=== PATIENT | female | born 2005 ===

== ENCOUNTER 2023-09-26 09:48 | Outpatient (AMB) | payer OTHER, SELFPAY ==
--- NOTE | 2023-09-26 09:14 | MHC.PC.OV ---
Vital Signs 09/26/23 10:11 Height 5 ft 3.54 in Weight 228 lb 6 oz BMI 39.8 BP 112/68 Blood Pressure Location Rt brachial Position Sitting Pulse 90 Pulse Source Pulse Oximeter Temp 98.6 F Temp Source Oral Pulse Oximetry (%) 98 Oxygen Delivery Method Room Air Intake Visit Reasons: unpaid intern visit Intake Note: New patient visit. Ion Exchange Operator Required: Yes Ion Exchange Operator Language: Medicine Man Name: Ana Cristina [id number] Information Interpreted: clinical only Is last menstrual period known: Yes Last menstrual period: 09/24/23 Allergies No Known Allergies Allergy (Verified 09/26/23 10:02) Medication List - Last Reconciled 09/26/23 by Jessica Drake PA-C No Known Home Meds Tobacco use date assessed: 09/26/23 Dental Screening Dental Screen Date: 09/26/23 Did you have a dental visit in the last 12 months?: Yes Did you have a dental problem in the last 6 months where you did not have access to dental care?: No Was dental information given to patient?: Yes HPI unpaid intern visit HPI Details Pt is a 18 y/o female who presents today to establish care. She states that she used to follow with a chair trimmer but it was a few years ago. She denies being diagnosed with anything. medical supply technician #[id number] used today She states she made this appointment for a few reasons: -She states she has a very irregular menses. She states it has been like this since she started getting periods at the age of 8. She has never had a ferry terminal agent. She is sexually active. She states she has not had any STD testing. -She has noted malodorous urine on and off for the last month. No dysuria, flank pain, abdominal pain, n/v. No fever or chills. She does report that she does not drink enough water. Her mother had uterine cancer. -She endorses upper back pain that she believes is from her breasts. She states it causes her to lean forward a lot. She wants a breast reduction. -she gets a lot of rashes under her breasts especially in the summertime. She tries to be more physically active but when she sweats a lot the rashes get worse. It is intermittently itchy. PFSH Family History (Updated 09/26/23 @ 10:09 by Meggan Hicks CMA) Maternal Aunt No problems noted. 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 How often do you have a drink containing alcohol?: Monthly or less 2. How many drinks containing alcohol do you have on a typical day when you are drinking?: 1 or 2 3. How often do you have six or more drinks on one occasion?: Never Total Score: 1 Physical exam (Primary Care) Vital Signs: Last Vital Signs Temp 98.6 F 09/26/23 10:11 Pulse 90 09/26/23 10:11 BP 112/68 09/26/23 10:11 Pulse Ox 98 09/26/23 10:11 Oxygen Delivery Method Room Air 09/26/23 10:11 BMI result Body Mass Index 39.8 BMI Assessment/Plan discussion: High BMI High, discussed plan: lifestyle, weight reduction, dietary and physical activity Tobacco/Smoking Status: Tobacco use Status Tobacco use date assessed 09/26/23 09/26/23 10:14 Patient Tobacco Use Status Never used Tobacco 09/26/23 10:14 e-Cigarette/Vaping Use Currently Using 09/26/23 10:14 Const Orientation/consciousness: patient oriented x3 HENMT Ears: hearing grossly normal bilaterally Face and sinus: Yes sinuses nontender Mouth: Normal oral and palatal mucosa present Neck Neck: Yes full ROM Thyroid: Thyroid normal Lymphatic: no lymphadenopathy noted Chest Other: Large, pendulous breasts. There is a slightly erythematous, flat rash noted beneath the breasts and between the breasts. There are scattered satellite lesions. Resp Auscultation: clear to auscultation bilaterally Cardio Rate: regular rate Rhythm: regular rhythm Heart sounds: S1 normal heart sound present and S2 normal heart sound present GI Inspection: Yes normal to inspection Palpation (GI): Soft to palpation and Other GI palpation findings present (nontender, no cva tenderness) Auscultation: normoactive bowel sounds General: Yes CVA tenderness Back/Spine/Pelvis Back: CVA tenderness Thoracic/Lumbar Spine: thoracic and lumbar spine normal to inspection, straight leg raise negative bilaterally and paraspinal muscle tenderness Skin General skin exam: no rashes or lesions noted Neuro General: patient oriented x3, gait normal and no focal motor deficits Assessment and Plan Assessment & Plan (1) Upper back pain: Code(s): M54.9 - Dorsalgia, unspecified Plan: xray ordered. advised to start PT. I have encouraged weight loss (2) Candidiasis of breast: Code(s): B37.89 - Other sites of candidiasis Plan: will treat with clotrimazole cream. Advised to keep the skin clean and dry. We will follow up in 1 month. (3) Irregular menses: Code(s): N92.6 - Irregular menstruation, unspecified Plan: Referral to Gynecology. Labs ordered. Advised to track her menses. (4) Malodorous urine: Code(s): R82.90 - Unspecified abnormal findings in urine Plan: UA and culture ordered. STD panel ordered. We will follow up pending test results. I have encouraged hydration. Orders: Orders Complete Blood Count Auto Diff Today . - Other sites of candidiasis, M54.9 - Dorsalgia, unspecified, N92.6 - Irregular menstruation, unspecified, R82.90 - Unspecified abnormal findings in urine, Z11.3 - Encounter for screening for infections with a predominantly sexual mode of transmission Comprehensive [place]. Panel Fast Today . - Other sites of candidiasis, M54.9 - Dorsalgia, unspecified, N92.6 - Irregular menstruation, unspecified, R82.90 - Unspecified abnormal findings in urine, Z11.3 - Encounter for screening for infections with a predominantly sexual mode of transmission UA CC w/rflx Micro + Cult Today B3.89 - Other sites of candidiasis, M54.9 - Dorsalgia, unspecified, N92.6 - Irregular menstruation, unspecified, R82.90 - Unspecified abnormal findings in urine, Z11.3 - Encounter for screening for infections with a predominantly sexual mode of transmission TSH reflex Free T4 Today B3.89 - Other sites of candidiasis, M54.9 - Dorsalgia, unspecified, N92.6 - Irregular menstruation, unspecified, R82.90 - Unspecified abnormal findings in urine, Z11.3 - Encounter for screening for infections with a predominantly sexual mode of transmission Hepatitis C Antibody Today B37.89 - Other sites of candidiasis, M54.9 - Dorsalgia, unspecified, N92.6 - Irregular menstruation, unspecified, R82.90 - Unspecified abnormal findings in urine, Z11.3 - Encounter for screening for infections with a predominantly sexual mode of transmission Syphilis Screen Today B37.89 - Other sites of candidiasis, M54.9 - Dorsalgia, unspecified, N92.6 - Irregular menstruation, unspecified, R82.90 - Unspecified abnormal findings in urine, Z11.3 - Encounter for screening for infections with a predominantly sexual mode of transmission CT NG by PCR Today B37.89 - Other sites of candidiasis, M54.9 - Dorsalgia, unspecified, N92.6 - Irregular menstruation, unspecified, R82.90 - Unspecified abnormal findings in urine, Z11.3 - Encounter for screening for infections with a predominantly sexual mode of transmission XR thoracic spine 2V Today M54.9 - Dorsalgia, unspecified PT Evaluation and Treatment Today M54.9 - Dorsalgia, unspecified Lipid Panel Today B37.89 - Other sites of candidiasis, M54.9 - Dorsalgia, unspecified, N92.6 - Irregular menstruation, unspecified, R82.90 - Unspecified abnormal findings in urine, Z11.3 - Encounter for screening for infections with a predominantly sexual mode of transmission HIV Ab/Ag Today B37.89 - Other sites of candidiasis, M54.9 - Dorsalgia, unspecified, N92.6 - Irregular menstruation, unspecified, R82.90 - Unspecified abnormal findings in urine, Z11.3 - Encounter for screening for infections with a predominantly sexual mode of transmission Referrals PHOTONIC LABORATORY TECHNICIAN Referral Z01.419 - Encounter for gynecological examination (general) (routine) without abnormal findings Medications: New clotrimazole 1% 1 appl topical BID 4 weeks 45 grams 3RF Coding Level of Care Code New Pt Level 4 (46553) Complex EM visit Add On G2211 Diagnoses Upper back pain M54.9 Candidiasis of breast B37.89 Irregular menses N92.6 Malodorous urine R82.90
[2023-09-26 10:11] VITALS: BP 112/68; PULSE 90; TEMP 37; O2SAT 98; BMI 39.8
== END 2023-09-26 10:47 | disposition home or self-care (01) ==
PROVIDERS: Visit Provider Physician Assistant
DX: M54.9 Dorsalgia, unspecified (principal); B37.89 Other sites of candidiasis; N92.6 Irregular menstruation, unspecified; R82.90 Unspecified abnormal findings in urine
CPT/HCPCS: 99204; G2211

== ENCOUNTER 2023-10-11 09:26 | Outpatient (REF) | payer OTHER, SELFPAY ==
[2023-10-11 11:03] LABS: Appearance Urine Clear; Color Urine Yellow; Glucose Urine UA Negative (Negative); Leukocyte Esterase Urine Small (1+) (Negative); Nitrite Urine Negative (Negative); PH 6.5 (5.0-9.0); Specific Gravity - Urine 1.025 (1.005-1.025); UMIC TRIGGER UACC YES; Urine Blood Negative (Negative); Urine Ketones Negative (Negative); Urine Protein Negative (Neg-Trace)
[2023-10-11 11:10] LABS: Bacteria Urine 1+ (None Seen); Hyaline Casts Urine 0-2 /LPF (0-2); RBC Urine 0-2 /HPF (0-2); UACC Culture Trigger YES
== END 2023-10-11 09:27 | disposition home or self-care (01) ==
LOC: HO.WFDLDS 09:26
PROVIDERS: Visit Provider Physician Assistant
DX: R82.90 Unspecified abnormal findings in urine (principal)
CPT/HCPCS: 81001; 81003; 87086; 87088; 87186

== ENCOUNTER 2023-10-12 11:16 | Outpatient (REF) | payer OTHER, SELFPAY ==
[2023-10-12 12:53] LABS: MANUAL DIFF FLAG NO
[2023-10-12 12:56] LABS: Basophils Percent Auto 0.5 % (0-2); Eosinophils Absolute Auto 0.2 X10*3/uL (0.0-0.4); Eosinophils Percent Auto 2.5 % (0-4); Hematocrit 40.2 % (37.0-47.0); Hemoglobin 13.2 g/dl (12.0-16.0); Imm Gran Abs Auto 0.01 X10*3/uL (0.00-0.03); Imm Gran Pct Auto 0.2 % (0.0-0.4); Lymphocytes Absolute Auto 2.1 X10*3/uL (1.2-4.9); Lymphocytes Percent Auto 32.5 % (20-40); Mean Corpuscular HGB Conc 32.8 g/dl (31.0-35.0); Mean Corpuscular Volume 82.4 fL (80.0-98.0); Mean Platelet Volume 10.3 fL (9.4-12.3); Monocytes Absolute Auto 0.5 X10*3/uL (0.1-1.2); Monocytes Percent Auto 8.2 % (2-11); Neutrophils Absolute Auto 3.6 x10*3/uL (2.0-8.3); Neutrophils Percent Auto 56.1 % (45-73); Platelet Count 315 X10*3/uL (160-400); Red Blood Count 4.88 X10*6/uL (4.20-5.50); Red Cell Distribution Width 12.7 % (11.0-16.0); White Blood Count 6.4 X10*3/uL (4.8-10.8)
[2023-10-12 13:12] LABS: Appearance Urine Cloudy; Color Urine Yellow; Glucose Urine UA Negative (Negative); Leukocyte Esterase Urine Moderate (2+) (Negative); Nitrite Urine Positive (Negative); PH 5.5 (5.0-9.0); UMIC TRIGGER UACC YES; Urine Blood Negative (Negative); Urine Ketones Negative (Negative); Urine Protein Negative (Neg-Trace)
[2023-10-12 13:17] LABS: Bacteria Urine 4+ (None Seen); Hyaline Casts Urine 0-2 /LPF (0-2); RBC Urine 0-2 /HPF (0-2); UACC Culture Trigger YES; WBC Urine >50 /HPF (0-5)
[2023-10-12 13:22] LABS: Alanine Aminotransferase 23 U/L (0-31); Alkaline Phosphatase 80 U/L (39-117); Anion Gap 11 (12-20); Aspartate Amino Transferase 20 U/L (5-31); Bilirubin Total 0.3 mg/dL (0.0-1.0); Blood Urea Nitrogen 10 mg/dL (9-16); Calcium 9.5 mg/dL (8.4-10.2); Carbon Dioxide 25 mmol/L (22-29); Chloride 107 mmol/L (96-108); Cholesterol 167 mg/dL (<200); Estimated Glomerular Filt Rate > 60; Glucose Fasting 92 mg/dL (60-99); HDL Cholesterol 41 mg/dL (>40); LDL Cholesterol Calculated 100 mg/dL (<100); Potassium 4.2 mmol/L (3.3-5.1); Sodium 139 mmol/L (135-145); Total Protein 6.8 g/dL (6.5-8.0); Triglycerides 132 mg/dL (<150)
[2023-10-12 13:37] LABS: TSH reflex Free T4 0.72 uIU/mL (0.32-4.0)
[2023-10-13 03:53] LABS: Syphilis Screen Nonreactive (Nonreactive)
[2023-10-13 04:01] LABS: HIV Num 1 3.29 S/CO (0.00-0.99); ~Hepatitis C Antibody Nonreactive (Nonreactive)
[2023-10-13 05:06] LABS: HIV AB/AG Nonreactive (Nonreactive); HIV Num 2 0.26 S/CO; HIV Num 3 0.28 S/CO
== END 2023-10-12 11:17 | disposition home or self-care (01) ==
LOC: HO.HMGCLDS 11:16
PROVIDERS: Visit Provider Physician Assistant
DX: M54.9 Dorsalgia, unspecified (principal); B37.89 Other sites of candidiasis; N92.6 Irregular menstruation, unspecified; R82.90 Unspecified abnormal findings in urine; Z11.3 Encounter for screening for infections with a predominantly sexual mode of transmission
CPT/HCPCS: 36415; 80053; 80061; 81001; 81003; 84443; 85025; 86780; 86803; 87389

== ENCOUNTER 2023-10-18 12:04 | Outpatient (REF) | payer OTHER, SELFPAY ==
--- NOTE | ~2023-10-18 | XR_ITS ---
EXAMINATION: XR THORACIC SPINE CLINICAL INFORMATION: Back pain. COMPARISON: None available. TECHNIQUE: 3 views of the thoracic spine were obtained. FINDINGS: There is no fracture or bone destruction seen and the vertebral alignment is normal. There is no disc space narrowing. There is no abnormality of the paraspinal soft tissues. XR/XR thoracic spine 2V IMPRESSION: Unremarkable examination. Electronically signed by: Jg Aguirre MD 11/13/2023 09:00 PM EDT
== END 2023-10-18 12:05 | disposition home or self-care (01) ==
LOC: HO.XRAY 12:04
PROVIDERS: PCP Physician Assistant; Visit Provider Physician Assistant
DX: M54.9 Dorsalgia, unspecified (principal)
CPT/HCPCS: 72070

== ENCOUNTER 2023-11-06 15:21 | Outpatient (AMB) | payer OTHER, SELFPAY ==
--- NOTE | 2023-11-06 15:28 | A.OFFPC_ITS ---
Vital Signs 11/06/23 15:42 Height 5 ft 3.54 in Weight 226 lb 6 oz BMI 39.4 BP 98/70 Blood Pressure Location Lt brachial Position Sitting Respiration 16 Pulse 69 Pulse Source Pulse Oximeter Pulse Oximetry (%) 97 Oxygen Delivery Method Room Air Intake Visit Reasons: annual and labs Intake Note: Follow up lab results. Cargo And Ramp Services Manager Required: Yes Cargo And Ramp Services Manager Language: School Cafeteria Head Cook Name: Fidel [id number] Allergies No Known Allergies Allergy (Verified 11/06/23 15:28) Medication List - Last Reconciled 11/06/23 by Jessica Drake PA-C No Known Home Meds Tobacco use date assessed: 09/26/23 Dental Screening Dental Screen Date: 09/26/23 HPI annual and labs HPI Details Patient is a 18-year-old female who presents today for a physical exam. Cargo And Ramp Services Manager: Fidel [id number] Derm: She does complain today a dark in rash round her neck in the skin fold. She has no symptoms related to this. She has tried [id number] creams without any improvement. It does not bother her. She states it cosmetically bothers her. Musculoskeletal: Left knee pain that started about 2 months ago. It is mostly on the lateral aspect. It often feels stiff and like it could give out on her. She denies any swelling, erythema. No trauma. 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 She states her left middle finger is also sometimes stiff but not all of the time. She got her back xray on 10/17 and it is not back yet. Semiconductor Equipment Technician: states she needs to call to book [facility] Family History (Updated 09/26/23 @ 10:09 by Meggan Hicks CMA) Maternal Aunt No problems noted. 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 1. Little interest or pleasure in doing things: not at all 2. Feeling down, depressed, or hopeless: not at all 3. Trouble falling or staying asleep, or sleeping too much: not at all 4. Feeling tired or having little energy: not at all 5. Poor appetite or overeating: not at all 6. Feeling bad about yourself - or that you are a failure or have let yourself or your family down: not at all 7. Trouble concentrating on things, such as reading the newspaper or watching television: not at all 8. Moving or speaking so slowly that other people could have noticed. Or the opposite - being so fidgety or restless that you have been moving around a lot m ore than usual: not at all 9. Thoughts that you would be better off or of hurting yourself in some way: not at all Total score: 0 Depression Screening Interpretation: Negative Depression Screening Done: Yes 47121 - PHQ-9 Billing: Yes Source: Developed by Drs. Jena Faye, Josette Allen, Waldo Adrian and colleagues, with an educational james from [employer]. Thrive Questionnaire Date Thrive assessed: 11/06/23 I am a: Patient What is your living situation today?: I have a steady place to live Within the past 12 months, did the food you bought not last and you didn't have the money to get more?: Never true Within the past 12 months, did you worry whether your food would run out before you got money to buy more?: Never true Do you have trouble paying for medicines?: No Do you have trouble getting transportation to medical appointments?: No Do you have trouble paying your heating and electricity bill?: No Do you have trouble taking care of your child, family member or friend?: No Are you currently unemployed and looking for a job?: No Are you interested in more education?: No Please select the resources that you would like help with: None Currently or been in a relationship where the following occur: No concerns reported THRIVE Score: 0 SADIQ-7 AMB Questionnaire SADIQ-7 Date SADIQ - 7 assessed: 11/06/23 Feeling nervous, anxious, or on edge: 0 = Not at all Not being able to stop or control worryin = Not at all Worrying too much about different things: 0 = Not at all Trouble relaxin = Not at all Being so restless that it is hard to sit still: 0 = Not at all Becoming easily annoyed or irritable: 0 = Not at all Feeling afraid as if something awful might happen: 0 = Not at all Total SADIQ-7 score (0-4 normal; 5-9 mild; 10-14 moderate; 15-21 severe): 0 Source: Developed by Drs. Jean Faye, Josette Allen, Waldo Adrian and colleagues, with an educational james from [employer]. SADIQ-7 Assessment Billing SADIQ-7 Assessment Tool: SADIQ-7 Assessment 52047 Physical exam (Primary Care) Vital Signs: Last Vital Signs Pulse 69 11/06/23 15:42 Resp 16 11/06/23 15:42 BP 98/70 11/06/23 15:42 Pulse Ox 97 11/06/23 15:42 Oxygen Delivery Method Room Air 11/06/23 15:42 BMI result Body Mass Index 39.4 Tobacco/Smoking Status: Tobacco use Status Tobacco use date assessed 09/26/23 11/06/23 15:28 Patient Tobacco Use Status Never used Tobacco 11/06/23 15:28 e-Cigarette/Vaping Use Currently Using 11/06/23 15:28 PHQ-9: PHQ-9 Score PHQ-9: Total score 0 11/06/23 15:49 Depression Screening Interpretation: Negative Thrive Assessment: Date of Thrive Assessment Date Thrive assessed 11/06/23 11/06/23 15:47 Currently or been in a relationship where the following occur: No concerns reported Const Orientation/consciousness: patient oriented x3 HENMT Ears: hearing grossly normal bilaterally and TM's normal bilaterally General nose exam: No nasal polyps present Face and sinus: Yes sinuses nontender Mouth: Normal oral and palatal mucosa present Eyes Pupils: Equal, round and reactive pupils present EOM: EOMs intact bilaterally Neck Neck: Yes full ROM and Yes no lymphadenopathy Thyroid: Thyroid normal Chest Chest palpation & inspection: normal inspection of the chest Resp Auscultation: clear to auscultation bilaterally Cardio Rate: regular rate Rhythm: regular rhythm Heart sounds: S1 normal heart sound present and S2 normal heart sound present Peripheral pulses: Peripheral pulses 2+ throughout GI Other: Soft, nontender Auscultation: normal bowel sounds Rectal Exam - Female: deferred General: Yes no CVA tenderness Back/Spine/Pelvis Other: Nontender Back: no CVA tenderness Skin Other: She does have some hyperpigmentation noted in the skin folds of the neck. Neuro General: patient oriented x3, gait normal, CN's II-XI intact bilaterally and deep tendon reflexes 2+ bilaterally Cranial nerves: Yes Equal, round and reactive pupils present Motor exam (neuro): 5/5 motor strength present throughout Sensory Exam: double simultaneous stimulation for sensation normal Coordination: [id number]-[id number] test normal and Romberg test negative Extrem General: Yes normal to inspection and Yes full ROM Psych Affect: normal affect Attitude: cooperative Thought process: Normal thought process present Thought content: Normal thought content present Insight: Good insight present (Psych) Judgement: Good judgement present (Psych) Results Reviewed Results Reviewed: Laboratory Tests 10/12/23 11:20 Sodium 139 Potassium 4.2 Chloride 107 Carbon Dioxide 25 Anion Gap 11 L Creatinine 0.68 Estimated GFR > 60 Fasting Glucose 92 AST 20 ALT 23 Triglycerides 132 Cholesterol 167 LDL Cholesterol, Calc 100 H HDL Cholesterol 41 TSH 0.72 Assessment and Plan Assessment & Plan (1) Routine general medical examination at a health care facility: Code(s): Z00.00 - Encounter for general adult medical examination without abnormal findings Plan: Health maintenance reviewed. Labs reviewed. (2) Finger pain, left: Code(s): M79.645 - Pain in left finger(s) Plan: X-ray ordered (3) Obesity (BMI 35.0-39.9 without comorbidity): Code(s): E66.9 - Obesity, unspecified Plan: We will refer her to a zyglo inspector. (4) Skin rash: Code(s): R21 - Rash and other nonspecific skin eruption Plan: Discussed with her that this looks consistent with acanthosis nigricans. We reviewed the possibilities of insulin resistance. Last labs looked normal. She will follow with a zyglo inspector and reduce her sugar intake. She does have a family history of type 2 diabetes. (5) Left knee pain: Code(s): M25.562 - Pain in left knee Plan: X-ray ordered. Referral to ortho. Orders: Orders XR knee LT 3V Today M25.562 - Pain in left knee XR finger LT min 2V Today M79.645 - Pain in left finger(s) Referrals [facility] Nutrition Referral E66.9 - Obesity, unspecified, Z83.3 - Family history of diabetes mellitus Orthopedics Referral M25.562 - Pain in left knee Dermatology Referral R21 - Rash and other nonspecific skin eruption Coding Level of Care Code Est Pt Prev Care 18-39y(05791) Diagnoses Routine general medical examination at a health care facility Z00.00 Finger pain, left M79.645 Obesity (BMI 35.0-39.9 without comorbidity) E66.9 Skin rash R21 Left knee pain M25.562 Additional Codes SADIQ-7 Assessment Billing - SADIQ-7 Assessment Tool: SADIQ-7 Assessment 10572 ([id number])
[2023-11-06 15:42] VITALS: BP 98/70; PULSE 69; RESP 16; O2SAT 97; BMI 39.4
== END 2023-11-06 16:26 | disposition home or self-care (01) ==
PROVIDERS: PCP Physician Assistant; Visit Provider Physician Assistant
DX: Z00.00 Encounter for general adult medical examination without abnormal findings (principal); M79.645 Pain in left finger(s); E66.9 Obesity, unspecified; Z68.39 Body mass index [BMI] 39.0-39.9, adult; M25.562 Pain in left knee; R21 Rash and other nonspecific skin eruption
CPT/HCPCS: 99395

== ENCOUNTER 2023-11-08 10:00 | Outpatient (RCR) | payer OTHER, SELFPAY ==
--- NOTE | 2023-10-18 11:59 | MHC.PT.EP ---
[facility] [place] Office [place] Office [place] Office [address] Angel Peres [address] [phone] F: [phone] F: [phone] F: [phone] F: [phone] Physical Therapy Plan of Care Date of Evaluation: 10/18/23 Date of Surgery: NA Diagnosis: Upper back pain Assessment: Shiva is a 18 year old female who is referred to PT for upper back pain . She reports of having mid back pain for about 2 years. She denies having any trauma or falls but attributes her pain to her big breast tissue. On PT examination she presents with 10/10 pain with sitting, TTP from T10 to L3 spinous process, all trunk ROM WNL, decreased core strength and scap strength, and altered posture. She lives with her family and is independent with self care activities but need help for IADLS due to pain. She would benefit from skilled PT to address the aforementioned impairments and improve tolerance to functional activities. Frequency and Duration: The patient will be seen 2/week for 5 weeks. Short Term Goals: 1. Pt will have 50% decrease in pain which will enable her to tolerate sitting for an hour without pain in 2 weeks. 2. Pt will demonstrate good awareness of sitting posture with lumbar roll and with perform self assessment and correction in 2 weeks Account Executive Key Accounts Goals: 1. Pt will demonstrate an increase in muscle strength by 1 grade which will enable her to perform all IADLs like cleaning, cooking without pain in 5 weeks. 2. Pt will be independent with all HEP for symptom management and maintenance following d/c in 5 weeks. Treatment Plan: Modalities to reduce pain, spasms and effusion. Manual therapy to restore motion and function. Therapeutic exercise to improve strength and flexibility. Neuromuscular re-education for posture and balance. Therapeutic activities to return to functional activities of daily living. Electronically signed by: Luz Maria Mendez PT DPT Please sign and return to therapist. Thank you for your referral.
--- NOTE | 2023-11-20 13:13 | MHC.PT.DC ---
[facility] [place] Office [place] [facility] [place] Office [address] Angel Peres [address] [phone] F: [phone] F: [phone] F: [phone] F: [phone] Physical Therapy Discharge Report Diagnosis: Upper back pain Date of Surgery: NA Date of Evaluation: 10/18/23 Date of Discharge: 11/20/23 Treatments to Date: 6 Cancellations to Date: 3 No Shows to Date: 0 Discharge Status: Improved Function Independent with HEP Discharge Summary: Alee attended 6 PT visits and canceled her last 2 visits. She made improvements with PT and was independent with HEP. She has not called to re-schedule her missed appointments. She is therefore being d/c from PT. Electronically signed by: Luz Maria Mendez PT DPT Please sign and return to therapist. Thank you for your referral.
== END 2023-11-20 13:18 | disposition home or self-care (01) ==
LOC: HO.PT 10:00
PROVIDERS: PCP Physician Assistant; Visit Provider Physician Assistant
DX: M54.9 Dorsalgia, unspecified (principal)
CPT/HCPCS: 97110; 97112; 97161

== ENCOUNTER 2023-12-06 14:10 | Outpatient (REF) | payer OTHER, SELFPAY ==
[2023-12-07 14:24] LABS: CT PCR NOT DETECTED (Not Detect.); NG PCR NOT DETECTED (Not Detect.)
[2023-12-08 09:02] LABS: Bacterial Vaginosis PCR NEGATIVE (Negative); Candida Group PCR NOT DETECTED (Not Detect); Candida glab krusei PCR NOT DETECTED (Not Detect); Trichomonas vaginalis PCR NOT DETECTED (Not Detect)
== END 2023-12-06 14:11 | disposition home or self-care (01) ==
LOC: HO.LAB 14:10
PROVIDERS: PCP Physician Assistant; Visit Provider Advanced Practice Midwife
DX: Z20.2 Contact with and (suspected) exposure to infections with a predominantly sexual mode of transmission (principal); N89.8 Other specified noninflammatory disorders of vagina; O03.9 Complete or unspecified spontaneous abortion without complication; E66.9 Obesity, unspecified; Z87.42 Personal history of other diseases of the female genital tract
CPT/HCPCS: 0352U; 36415; 81001; 84702; 85027; 86850; 86900; 87491; 87591; 99202

== ENCOUNTER 2023-12-06 14:10 | Outpatient (AMB) | payer OTHER, SELFPAY ==
[2023-12-06 14:33] VITALS: BP 128/70; BMI 39.1
--- NOTE | 2023-12-06 14:33 | A.OFFVIS_ITS ---
Vital Signs 12/06/23 14:33 Height 5 ft 3.5 in Weight 224 lb BMI 39.1 BP 128/70 Intake Visit Reasons: New patient Annual Information Interpreted: clinical only Developer Architect: Developer Architect Present Allergies No Known Allergies Allergy (Verified 12/06/23 14:34) Medication List - Last Reconciled 12/06/23 by Haley Salazar CNM No Known Home Meds Is last menstrual period known: Yes Last menstrual period: 11/03/23 HPI HPI New patient Annual: Details: Scheduled as a new patient annual but she came with very different concerns toadriana nathan. She has a history of irregular periods all her life sometimes she can miss a period or 2. Lately she says they were regular she thinks she had 1 in October but she can not tell me the date and then she got a period that started on November 02. However she had symptoms and was averse to odors and foods for the week before that she did a test and it was negative and then when she got her period or the bleeding she did a test again and both were negative however the bleeding has been very unusual with passage of unusual clots and tissue and it has been ongoing since November 02. She has not been contraceptive thing she would be happy if she were but she was not planning a and does not think this is the right time. She really wants to know if she was or not that is the burning issue of the day. She has had 2 partners in her lifetime and she is with the current partner for 3 years and she would be happy if she had a baby with him but now is not the time. She says she had blood work done with her primary care provider and testing for infections by going to the lab and doing self swabs in the summer and they were negative. [facility] Family History Maternal Aunt No problems noted. 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 Current occupational exposures/hazards: No Cognitive needs: No Hearing needs: No Vision needs: Yes Female Reproductive History Menstrual Age of Menarche: 7 Duration of menses: other Date of last menstrual period: 11/03/23 control method: none Total pregnancies: 0 History of abnormal pap smear: No (no previous pap) Physical Exam Vital Signs: Last Vital Signs BP 128/70 12/06/23 14:33 BMI result Body Mass Index 39.1 Assessment & Plan Assessment & Plan (1) Obesity (BMI 35.0-39.9 without comorbidity): Code(s): E66.9 - Obesity, unspecified Category: Medical (2) Miscarriage: Comment: possible- need to determine if . bleeding w passage of ? clot vs tissue x 1 month Code(s): O03.9 - Complete or unspecified spontaneous without complication Category: Medical (3) History of irregular menstrual cycles: Code(s): Z87.42 - Personal history of other diseases of the female genital tract Category: Medical Plan Scheduled as a new patient annual but she came with very different concerns today. She has a history of irregular periods all her life sometimes she can miss a period or 2. Lately she says they were regular she thinks she had 1 in October but she can not tell me the date and then she got a period that started on November 02. However she had symptoms and was averse to odors and foods for the week before that she did a test and it was negative and then when she got her period or the bleeding she did a test again and both were negative however the bleeding has been very unusual with passage of unusual clots and tissue and it has been ongoing since November 02. She has not been contraceptive thing she would be happy if she were but she was not planning a and does not think this is the right time. She really wants to know if she was or not that is the burning issue of the day. She has had 2 partners in her lifetime and she is with the current partner for 3 years and she would be happy if she had a baby with him but now is not the time. She says she had blood work done with her primary care provider and testing for infections by going to the lab and doing self swabs in the summer and they were negative. Discussed the possibility that she may well have been in that she might have been right this is what she suspected. Discussed that I may never be able to prove it when we another and the tests may come back negative but her story sounds consistent with a possible early miscarriage. We will need to determine whether not the quants are 0 or falling or rising or what additionally she does not have any symptoms that are suspicious for an ectopic and she never had any kind of suspicious pain. But I am ordering the ultrasound to be done Saturday after the 2nd quant and she will need follow-up either Saturday or Saturday. I am also ordering blood type and CBC because she reports that she felt dizzy 1 of the days that she was bleeding heavy a couple of weeks ago. She may want control if she is not in fact but that will be discussed after we establish what is going on and I told her I do not have any unprotected intercourse from here on out until it is figured out. Additionally she did not have an annual exam today. Orders: Orders HCG Quantitative Today E66.9 - Obesity, unspecified, O03.9 - Complete or unspecified spontaneous without complication Screen Today E66.9 - Obesity, unspecified, O03.9 - Complete or unspecified spontaneous without complication, Z32.01 - Encounter for test, result positive US pelvic and transvaginal 12/09/23 O03.9 - Complete or unspecified spontaneous without complication Complete Blood Count no Diff Today E66.9 - Obesity, unspecified, O03.9 - Complete or unspecified spontaneous without complication HCG Quantitative 12/09/23 E66.9 - Obesity, unspecified, O03.9 - Complete or unspecified spontaneous without complication Coding Level of Care Code New Pt Level 3 (92474) Diagnoses Obesity (BMI 35.0-39.9 without comorbidity) E66.9 Miscarriage O03.9 History of irregular menstrual cycles Z87.42
== END 2023-12-06 16:13 | disposition home or self-care (01) ==
PROVIDERS: PCP Physician Assistant; Visit Provider Advanced Practice Midwife
DX: E66.9 Obesity, unspecified (principal); O03.9 Complete or unspecified spontaneous abortion without complication; Z87.42 Personal history of other diseases of the female genital tract
CPT/HCPCS: 99203

== ENCOUNTER 2023-12-06 15:25 | Outpatient (REF) | payer OTHER, SELFPAY ==
[2023-12-06 16:02] LABS: Appearance Urine Clear; Color Urine Yellow; Glucose Urine UA Negative (Negative); Leukocyte Esterase Urine Negative (Negative); Nitrite Urine Negative (Negative); PH 5.5 (5.0-9.0); Specific Gravity - Urine 1.025 (1.005-1.025); UMIC TRIGGER UACC YES; Urine Blood Large (3+) (Negative); Urine Ketones Negative (Negative); Urine Protein Negative (Neg-Trace)
[2023-12-06 16:08] LABS: Bacteria Urine None Seen (None Seen); Hyaline Casts Urine 0-2 /LPF (0-2); RBC Urine >20 /HPF (0-2); WBC Urine 0-5 /HPF (0-5)
[2023-12-06 16:18] LABS: Hematocrit 38.2 % (37.0-47.0); Hemoglobin 12.3 g/dl (12.0-16.0); Mean Corpuscular HGB Conc 32.2 g/dl (31.0-35.0); Mean Corpuscular Hemoglobin 26.9 pg (27.0-33.0); Mean Corpuscular Volume 83.4 fL (80.0-98.0); Mean Platelet Volume 9.9 fL (9.4-12.3); Platelet Count 362 X10*3/uL (160-400); Red Blood Count 4.58 X10*6/uL (4.20-5.50); Red Cell Distribution Width 13.1 % (11.0-16.0); White Blood Count 8.9 X10*3/uL (4.8-10.8)
[2023-12-06 18:03] LABS: HCG Quantitative < 2 mIU/mL
== END 2023-12-06 15:26 | disposition home or self-care (01) ==
LOC: HO.HHCL 15:25
PROVIDERS: Referring Provider Physician Assistant; Visit Provider Advanced Practice Midwife
DX: Z13.89 Encounter for screening for other disorder (principal)
CPT/HCPCS: 36415; 81001; 81003; 84702; 85027; 86850; 86900

== ENCOUNTER 2023-12-09 12:51 | Outpatient (REF) | payer OTHER, SELFPAY ==
--- NOTE | ~2023-12-09 | US_ITS ---
EXAMINATION: US PELVIS CLINICAL INFORMATION: Complete or unspecified spontaneous without complication COMPARISON: None available. TECHNIQUE: Ultrasound of the pelvis is performed using both transabdominal and transvaginal transducers along with Doppler. Transvaginal imaging is performed due to inadequate visualization transabdominally. FINDINGS: Uterus: The uterus is anteverted and measures 7.1 x 3.3 x 4.4 cm. The double wall endometrial thickness is 0.2 mm. The uterus is smooth in contour and has normal myometrial echogenicity. No visible fibroid. Adnexa: Both ovaries are visualized. There is normal color flow to the adnexa. There is no ovarian torsion. There is no pelvic ascites or fluid collection. Right ovary measures 2.8 x 2.3 x 2.2 cm. Left ovary measures 3.2 x 2.3 x 2.4 cm. Small/trace fluid in the cul-de-sac. US/US pelvic and transvaginal IMPRESSION: Unremarkable pelvic ultrasound. Electronically signed by: Jean Catherine MD 12/09/2023 03:58 PM EDT
== END 2023-12-09 12:52 | disposition home or self-care (01) ==
LOC: HO.US 12:51
PROVIDERS: PCP Physician Assistant; Visit Provider Advanced Practice Midwife
DX: O03.9 Complete or unspecified spontaneous abortion without complication (principal)
CPT/HCPCS: 76830; 76856

== ENCOUNTER 2023-12-10 14:17 | Outpatient (AMB) | payer OTHER, SELFPAY ==
[2023-12-10 14:22] VITALS: BMI 39.1
--- NOTE | 2023-12-10 14:22 | A.OFFVIS_ITS ---
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 She had had some day symptoms but negative tests followed by a month of bleeding with clots and passage of what appeared to be tissue that she took pictures of. She had expressed some ambivalence about desire to be but has helped with her boyfriend and decided that it would be better to be better prepared in the future with money and everything. She works 2 jobs she normally would get regular periods but she did not write down the date. She is wondering about future fertility as well because her mother was able to have children though she had some sort of cancer that had resulted in her removal of her uterus and everything but her aunt could not have children. She had started going to the gym but her boyfriend had a problem and so he stopped going and she needs him to teach her the exercises to do she is starting to pay attention to what she eats but she does not have an appointment with a cut off man yet. She does want to lose weight she thinks she wants to go on control but she is worried about side effects and weight gain and other issues. [facility], [facility] Family History Maternal Aunt No problems noted. 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 Current occupational exposures/hazards: No Cognitive needs: No Hearing needs: No Vision needs: Yes Female Reproductive History Menstrual Age of Menarche: 7 Date of last menstrual period: 11/03/23 control method: none Total pregnancies: 0 History of abnormal pap smear: No (no previous pap) Physical Exam Vital Signs: BMI result Body Mass Index 39.1 Results Reviewed Results Reviewed: Name: Alee Bay Age/Sex: 18/F : 2005 Unit#: [id number] Attend Dr: Haley Salazar CNM Re12/06/23 Status: DEP REF Location: [facility] Disch: SPEC : [id number] JIMMIE: 12/06/23 STATUS: COMP REQ : [id number] RECD: 12/06/23-[address]: Haley Salazar CNM COMP: 12/06/23 ENTERED: 12/06/23-[address] [facility] [address]: ORDERED: HCG Quant Test Result Flag Reference HCG Quant < 2 mIU/mL Weeks post LMP Approximate hCG (Last Menstrual Period) Range (mIU/ml) 3 - 4 weeks 9 - 130 4 - 5 weeks 75 - 2,600 5 - 6 weeks 850 - 20,800 6 - 7 weeks 4000 - 100,200 7 - 12 weeks 11,500 - 289,000 12 - 16 weeks 18,300 - 137,000 16 - 29 weeks (2nd trimester) 1,400 - 53,000 29 - 41 weeks (3rd trimester) 940 - 60,000 The [place] B-hCG assay is used for the early detection of ; it cannot be used to diagnose any condition unrelated to . If a B-hCG level is not supported by the clinical evidence, results should be confirmed by an alternative method (qualitative urine hCG, for example). Patient: Alee Bay MR#: [id number] : 2005 Acct:[id number] Age/Sex: 18 / F ADM Date: 12/09/23 Loc: [facility] Attending Dr: Haley Salazar CNM Ordering Physician: Haley Salazar CNM Date of Service: 12/09/23 Procedure(s): US pelvic and transvaginal Accession Number(s): [id number] cc: Jessica Drake; Haley Salazar CNM~ EXAMINATION: US PELVIS CLINICAL INFORMATION: Complete or unspecified spontaneous without complication COMPARISON: None available. TECHNIQUE: Ultrasound of the pelvis is performed using both transabdominal and transvaginal transducers along with Doppler. Transvaginal imaging is performed due to inadequate visualization transabdominally. FINDINGS: Uterus: The uterus is anteverted and measures 7.1 x 3.3 x 4.4 cm. The double wall endometrial thickness is 0.2 mm. The uterus is smooth in contour and has normal myometrial echogenicity. No visible fibroid. Adnexa: Both ovaries are visualized. There is normal color flow to the adnexa. There is no ovarian torsion. There is no pelvic ascites or fluid collection. Right ovary measures 2.8 x 2.3 x 2.2 cm. Left ovary measures 3.2 x 2.3 x 2.4 cm. Small/trace fluid in the cul-de-sac. US/US pelvic and transvaginal IMPRESSION: Unremarkable pelvic ultrasound. 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: MARKOS Name: Alee Bay Age/Sex: 18/F : 2005 Unit#: [id number] Attend Dr: Haley Salazar CNM Re12/06/23 Status: DEP REF Location: [facility] Disch: SPEC : [id number] JIMMIE: 12/06/23 STATUS: COMP REQ : [id number] RECD: 12/06/[address]: Haley Salazar CNM COMP: 12/06/23 ENTERED: 12/06/[address]: ORDERED: CBC No Diff Test Result Flag Reference WBC 8.9 4.8-10.8 X10*3/uL RBC 4.58 4.20-5.50 X10*6/uL HGB 12.3 12.0-16.0 g/dl HCT 38.2 37.0-47.0 % MCV 83.4 80.0-98.0 fL MCH 26.9 L 27.0-33.0 pg MCHC 32.2 31.0-35.0 g/dl RDW 13.1 11.0-16.0 % PLT 362 160-400 X10*3/uL MPV 9.9 9.4-12.3 fL NRBC Pct Auto 0.0 0.0-0.2 /100WBC NRBC Abs Auto 0.000 0.0-0.012 X10*3/uL Name: Alee Bay Age/Sex: 18/F : 2005 Unit#: [id number] Attend Dr: Haley Salazar CNM Re12/06/23 Status: DEP REF Location: [facility] Disch: SPEC #: [id number] JIMMIE: 12/06/23 STATUS: COMP REQ #: [id number] RECD: 12/06/[address]: Haley Salazar CNM COMP: 12/06/23 ENTERED: 12/06/[address]: ORD PRODS: (NO ORDERED PRODUCTS) ORD TESTS: PRENS Test Result Flag Reference Screen Blood Type O Pos RH IMMUNE GLOBULIN INDICATED: NO ANTIBODY SCREEN NEGATIVE TITER Test not performed Negative antibody screen, Titer not indicated. Also reviewed negative serology screens for STIs Assessment & Plan Assessment & Plan (1) History of irregular menstrual cycles: Code(s): Z87.42 - Personal history of other diseases of the female genital tract Category: Medical (2) Miscarriage: Comment: possible- need to determine if . bleeding w passage of ? clot vs tissue x 1 month; no clinical supportive evidence, unable to prove either way.... Code(s): O03.9 - Complete or unspecified spontaneous without complication Category: Medical (3) Obesity (BMI 35.0-39.9 without comorbidity): Code(s): E66.9 - Obesity, unspecified Category: Medical (4) control counseling: Code(s): Z30.09 - Encounter for other general counseling and advice on contraception Category: Medical Plan I reviewed all of the findings there was in fact no clinical evidence of we can point to, to say that she in fact might of been but her story does some good and it is always possible we will just never know. Discussed again with her whether not she wishes to be at this time and she thinks now would not be the best time would financially and otherwise. She would like to lose weight and has intentions to get started but has not fully engaged in that yet discussed little things to start with would limiting junk food and adding more water and increasing her exercise with both weights and flexibility and cardio. She has an appointment with her primary coming up sometime in the future she is waiting for the cut off man appointment as well. I reviewed all of the labs in the ultrasound with her. Discussed safer sex with condoms as a bare minimum if she does not want to be and reviewed the side effects of other medications/hormonal control she said she talked with her mother and they decided that pills would be the best option she does not smoke or have any other contraindications to control pills. Reviewed precautions and what to watch for and what to do she experienced any reviewed what to do she misses a pill or 2 pills reviewed backup method her partner does not like condom use so that is an obstacle. Reviewed ways of having discussions to support is use of condoms in the relationship. She would need to wait till the start of the next period to start the pills and they should be started within the 1st 3 days of the next period I recommend she pharmacy picking technician pack today or tomorrow so she has the ready. She is heading back to work now for her 2nd job. We will see her in about 3 months she would not be due for 1st Pap till next August. Medications: New desog-e.estradiol/e.estradiol 0.15-0.02 mgx21 /0.01 mg x 5 1 tab PO DAILY 84 tabs 3RF Coding Level of Care Code Est Pt Level 3 (60189) Diagnoses History of irregular menstrual cycles Z87.42 Miscarriage O03.9 Obesity (BMI 35.0-39.9 without comorbidity) E66.9 control counseling Z30.09 Time Spent (min) 30 Comment 100% [id number] discussing all of the issues involved with her fertility obesity and...
== END 2023-12-10 15:08 | disposition home or self-care (01) ==
PROVIDERS: PCP Physician Assistant; Visit Provider Advanced Practice Midwife
DX: Z87.42 Personal history of other diseases of the female genital tract (principal); O03.9 Complete or unspecified spontaneous abortion without complication; E66.9 Obesity, unspecified; Z30.09 Encounter for other general counseling and advice on contraception
CPT/HCPCS: 99213

== ENCOUNTER → 2023-12-10 14:17 | Outpatient (BNVA) | payer OTHER, SELFPAY | PROVIDERS: PCP Physician Assistant; Visit Provider Advanced Practice Midwife | DX: Z30.09 Encounter for other general counseling and advice on contraception (principal); O03.9 Complete or unspecified spontaneous abortion without complication; E66.9 Obesity, unspecified; Z87.42 Personal history of other diseases of the female genital tract; Z68.39 Body mass index [BMI] 39.0-39.9, adult | CPT/HCPCS: 99212 ==

== ENCOUNTER 2024-04-08 17:59 | Emergency (ER) | payer OTHER, SELFPAY ==
--- NOTE | ~2024-04-08 | XR_ITS ---
CLINICAL HISTORY: cough 2 view chest x-ray Comparison: None Findings: No consolidation or effusion. Heart size is normal. No acute fracture. IMPRESSION: 1. No acute findings. This document has been electronically signed by: Graciela Hancock MD on 04/08/2024 20:21:45
[2024-04-08 18:08] VITALS: BP 118/56; PULSE 79; RESP 18; TEMP 36.6; O2SAT 99; BMI 38.7
--- NOTE | 2024-04-08 18:17 | ED.ABDPAIN ---
HPI - Abdominal Pain General Chief Complaint: Abdominal Pain Stated Complaint: pelvic pain Related Data Previous Rx's ?Medication ?Instructions ?Recorded desogestrel-e.estradiol 0.15 1 tab PO DAILY #84 tabs 12/10/23 mg-0.02 mg(21)/e.estrad 0.01 mg(5) tablet Allergies Allergy/AdvReac Type Severity Reaction Status Date / Time No Known Allergies Allergy Verified 04/08/24 18:15 PMFSH Family History Family History Maternal Aunt No problems noted. 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 Full HPI, ROS, assessment and treatment plan per primary provider in the Main ED. 18 yo female here for eval of RLQ pain/ cramping x2-3 days. LMP 5 days ago. no vaginal bleeding/discharge or urinary sx. also reports cough/ headache x3 weeks. +well appearing Plan: labs, UA, u preg, viral swabs, CXR. will defer advanced imaging to primary provider. Patient left the emergency department before myself or any of the other clinicians could review or explain physical exam findings, test results, need or lack there of for additional testing, treatment options, or a treatment plan. Medical Decision Making Lab Data 04/08/24 19:17 04/08/24 19:16 Labs: Lab Results 04/08/24 04/08/24 Range/Units 19:16 19:17 WBC 9.3 (4.8-10.8) X10*3/uL RBC 4.63 (4.20-5.50) X10*6/uL Hgb 12.3 (12.0-16.0) g/dl Hct 37.8 (37.0-47.0) % MCV 81.6 (80.0-98.0) fL MCH 26.6 L (27.0-33.0) pg MCHC 32.5 (31.0-35.0) g/dl RDW 12.6 (11.0-16.0) % Plt Count 383 (160-400) X10*3/uL MPV 9.3 L (9.4-12.3) fL Immature Gran % (Auto) 0.3 (0.0-0.4) % Neut % (Auto) 60.5 (45-73) % Lymph % (Auto) 32.9 (20-40) % [place] % (Auto) 5.5 (2-11) % Eos % (Auto) 0.6 (0-4) % Baso % (Auto) 0.2 (0-2) % Lymph # (Auto) 3.1 (1.2-4.9) X10*3/uL [place] # (Auto) 0.5 (0.1-1.2) X10*3/uL Eos # (Auto) 0.1 (0.0-0.4) X10*3/uL Baso # (Auto) 0.0 (0.0-0.2) X10*3/uL Abs Immat Gran (auto) 0.03 (0.00-0.03) X10*3/uL Absolute Neuts (auto) 5.6 (2.0-8.3) x10*3/uL Absolute Nucleated RBC 0.000 (0.0-0.012) X10*3/uL Nucleated RBC % (auto) 0.0 (0.0-0.2) /100WBC Sodium 140 (135-145) mmol/L Potassium 3.9 (3.3-5.1) mmol/L Chloride 106 (96-108) mmol/L Carbon Dioxide 29 (22-29) mmol/L Anion Gap 9 L (12-20) BUN 17 H (9-16) mg/dL Creatinine 0.73 (0.5-1.4) mg/dL Estim Creat Clear Calc 137.9 Estimated GFR > 60 Random Glucose 124 H (60-115) mg/dL Calcium 9.0 (8.4-10.2) mg/dL Magnesium 2.2 (1.6-2.6) mg/dL Total Bilirubin 0.1 (0.0-1.0) mg/dL AST 26 (5-31) U/L ALT 21 (0-31) U/L Alkaline Phosphatase 87 (39-117) U/L Total Protein 7.2 (6.5-8.0) g/dL Albumin 3.8 (3.5-5.0) g/dL Lipase 17 (8-78) U/L Urine Color Yellow Urine Appearance Clear Urine pH 6.0 (5.0-9.0) Ur Specific [place] 1.025 (1.005-1.025) Urine Protein Negative (Neg-Trace) mg/dL Urine Glucose (UA) Negative (Negative) mg/dL Urine Ketones Negative (Negative) mg/dL Urine Blood Negative (Negative) Urine Nitrite Negative (Negative) Ur Leukocyte Esterase Negative (Negative) Urine Test NEGATIVE (NEGATIVE) Influenza Type A (PCR) NEGATIVE (Negative) Influenza Type B (PCR) NEGATIVE (Negative) RSV RNA Qual (PCR) NEGATIVE (Negative) SARS-CoV-2 RNA (RT-PCR) NEGATIVE (Negative) Discharge Plan Discharge Clinical Impression: Abdominal pain Patient Disposition: Left W/O Completing Treatment Prescriptions: No Action desog-e.estradiol/e.estradiol 0.15-0.02 mgx21 /0.01 mg x 5 tablet 1 tab PO DAILY Qty: 84 3RF Discharge Date/Time: 04/08/24 22:36
[2024-04-08 19:23] LABS: MANUAL DIFF FLAG NO
[2024-04-08 19:27] LABS: Appearance Urine Clear; Color Urine Yellow; Glucose Urine UA Negative (Negative); Leukocyte Esterase Urine Negative (Negative); Nitrite Urine Negative (Negative); Specific Gravity - Urine 1.025 (1.005-1.025); Urine Blood Negative (Negative); Urine Ketones Negative (Negative); Urine Protein Negative (Neg-Trace)
[2024-04-08 19:28] LABS: UPreg QC Valid YES; Urine Pregnancy NEGATIVE (NEGATIVE)
[2024-04-08 19:43] LABS: Alanine Aminotransferase 21 U/L (0-31); Albumin Level 3.8 g/dL (3.5-5.0); Alkaline Phosphatase 87 U/L (39-117); Anion Gap 9 (12-20); Aspartate Amino Transferase 26 U/L (5-31); Bilirubin Total 0.1 mg/dL (0.0-1.0); Blood Urea Nitrogen 17 mg/dL (9-16); Carbon Dioxide 29 mmol/L (22-29); Chloride 106 mmol/L (96-108); Creatinine Clr Calc Pharmacy 137.9; Estimated Glomerular Filt Rate > 60; Glucose Random 124 mg/dL (60-115); Lipase 17 U/L (8-78); Magnesium 2.2 mg/dL (1.6-2.6); Potassium 3.9 mmol/L (3.3-5.1); Sodium 140 mmol/L (135-145); Total Protein 7.2 g/dL (6.5-8.0)
[2024-04-08 19:48] LABS: Basophils Percent Auto 0.2 % (0-2); Eosinophils Absolute Auto 0.1 X10*3/uL (0.0-0.4); Eosinophils Percent Auto 0.6 % (0-4); Hematocrit 37.8 % (37.0-47.0); Hemoglobin 12.3 g/dl (12.0-16.0); Imm Gran Abs Auto 0.03 X10*3/uL (0.00-0.03); Imm Gran Pct Auto 0.3 % (0.0-0.4); Lymphocytes Absolute Auto 3.1 X10*3/uL (1.2-4.9); Lymphocytes Percent Auto 32.9 % (20-40); Mean Corpuscular HGB Conc 32.5 g/dl (31.0-35.0); Mean Corpuscular Hemoglobin 26.6 pg (27.0-33.0); Mean Corpuscular Volume 81.6 fL (80.0-98.0); Mean Platelet Volume 9.3 fL (9.4-12.3); Monocytes Absolute Auto 0.5 X10*3/uL (0.1-1.2); Monocytes Percent Auto 5.5 % (2-11); Neutrophils Absolute Auto 5.6 x10*3/uL (2.0-8.3); Neutrophils Percent Auto 60.5 % (45-73); Platelet Count 383 X10*3/uL (160-400); Red Blood Count 4.63 X10*6/uL (4.20-5.50); Red Cell Distribution Width 12.6 % (11.0-16.0); White Blood Count 9.3 X10*3/uL (4.8-10.8)
[2024-04-08 20:03] LABS: Influenza A PCR NEGATIVE (Negative); Influenza B PCR NEGATIVE (Negative); Resp Syncy Virus RNA Qual PCR NEGATIVE (Negative); SARS COV2 PCR INHOUSE NEGATIVE (Negative)
== END 2024-04-08 22:36 | disposition left against medical advice (07) ==
PROVIDERS: Physician Assistant Medical; Emergency Provider Emergency Medicine
DX: R10.2 Pelvic and perineal pain (principal); R05.9 Cough, unspecified; Z03.818 Encounter for observation for suspected exposure to other biological agents ruled out
CPT/HCPCS: 0241U; 71046; 80053; 81003; 81025; 83690; 83735; 85025; 99282; 99283

== ENCOUNTER → 2024-04-08 18:16 | Outpatient (BNV) | payer OTHER, SELFPAY | PROVIDERS: Visit Provider Student in an Organized Health Care Education/Training Program | DX: R05.9 Cough, unspecified (principal) | CPT/HCPCS: 71046 ==

== ENCOUNTER 2024-04-10 14:23 | Outpatient (AMB) | payer OTHER, SELFPAY ==
--- NOTE | 2024-04-10 14:42 | MHC.OFFVIS ---
Vital Signs 04/10/24 14:43 Height 5 ft 3 in Weight 218 lb BMI 38.6 BP 106/62 Intake Visit Reasons: 3 Month Pill Check Diffusion Furnace Operator Required: No Diffusion Furnace Operator Services: Diffusion Furnace Operator Present Information Interpreted: clinical only Autism Teacher: Autism Teacher Present Allergies No Known Allergies Allergy (Verified 04/10/24 14:44) Medication List - Last Reconciled 04/10/24 by Haley Salazar CNM No Known Home Meds Is last menstrual period known: Yes Last menstrual period: 03/31/24 HPI HPI 3 Month Pill Check: Details: Patient is scheduled today 04/10/2024 for a three-month pill check however she actually never really started the control pills she was concerned about them having side effects and she does not like the idea of taking medicines at all so she has not been taking the control pills she says her mother calls her every day and asks her did she start the control pills and she tells her no. Her boyfriend does not like to use condoms. She has not been keeping track of her. Other than she can tell me that her last periods started March 31 and it ended on the and then on April 05 the day after she had a pain on her right side and then on April 08 she was still having the pain so she went to urgent care and they wanted her to get an ultrasound and told her to go to emergency room so she went to the emergency room but she was also getting over having a cold and she had a cough so she said they did an x-ray she said they did some tests but she does not know what they did but they did a test and it was negative. She is concerned that control pills will make her gain weight and she is worried about other side effects. She does not want to get right now she is told her boyfriend this but he still will not use condoms.. He Is 22 or 23 years old. 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 She says that is sometimes when she is ovulating the discharge has a smell. When I asked her how she knows when she is ovulating she could not describe to me what makes a think she knows that,(i.e. No symptoms that she can describe). [facility] Family History Maternal Aunt No problems noted. 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 Assessment & Plan Assessment & Plan (1) History of irregular menstrual cycles: Code(s): Z87.42 - Personal history of other diseases of the female genital tract Category: Medical (2) control counseling: Comment: Patient has they she never started the control pills and is uncertain if she wants to but at 04/10/2024 visit she decided that she will start them at the beginning of her next period we re-reviewed how to take them detail condoms also recommended. Code(s): Z30.09 - Encounter for other general counseling and advice on contraception Category: Medical (3) Pelvic pain: Code(s): R10.2 - Pelvic and perineal pain Category: Medical Plan Patient was here for control pill check however she never started them she was nervous about side effects she is not in habit of taking medication and she did not want to have medicines. She is sexually active with her boyfriend who will not use condoms even though she has told she does not want to be right now. She works 2 jobs. She says now they have their apartment together she says her mother wants her to get on cause her every day and asked so she was started tells her no. The patient had many questions about the control pills but also she told me that though she does not keep track of her periods her last 1 she knows because it started on March 31 and it lasted until April 04 and the day after that she started with a pain on her right side on April 05 after 3 days of that pain she went to urgent care in [place] somewhere on April 08 and they told her she might need a pelvic ultrasound and she went to the emergency room on their instructions but she was also getting over a cold and had a cough for 3 weeks so they evaluated her for the cough with a chest x-ray found in the records and they did do test that was negative. We had much discussion about the distance between her not wanting to have a baby right now and having unprotected sex with a boyfriend who does not want to use condoms though she tells in she does not want have a baby right now. Discussed thinking about that and when she thought about it -she said she would start on the control pills I told her not to do anything she did not want to do that condoms were also an option or at least keeping track of her period and knowing for sure when she is ovulating so she can take action accordingly(by using condoms) but she said she like to try the pills with her next. She reviewed with me how to take the pills and she had miss remember how to take them so we went over starting them with the beginning of the. And taking 1 pill a day same time every day until she wishes to have a baby. I reviewed side effects to expect both normal side effects of pills and also danger signs that could indicate something wrong such as a blood clot. The patient had also expressed concern about a malodorous discharge though it is not present today. I discussed that I could do a check for vaginal infections including STIs but she declined to do it today as she did not intend to have an exam as she has come from work in even though she showered in the morning she does not feel up to it I also offered her a pelvic exam to check for pain but she has no pain today so she said she did have a little pain morning. She is laughing smiling as we converse about these topics today during the visit. I offered her a pelvic ultrasound and a visit to check for STIs with a pelvic exam at the next opportunity in the schedule, And follow on from there in the future then can also see her to see how she is doing on pills. appt soon for std check pelvic u/s f/u after u/s, + check on ocps. Orders: Orders US pelvic and transvaginal Today R10.2 - Pelvic and perineal pain, Z30. - Encounter for other general counseling and advice on contraception, Z87.42 - Personal history of other diseases of the female genital tract Medications: Refilled desog-e.estradiol/e.estradiol 0.15-0.02 mgx21 /0.01 mg x 5 1 tab PO DAILY 84 tabs 3RF Coding Level of Care Code Est Pt Level 3 (42830) Diagnoses History of irregular menstrual cycles Z87.42 control counseling Z30. Pelvic pain R10.2 Time Spent (min) 45 Comment 100% spent with patient reviewing her story her symptoms and making a plan of care
[2024-04-10 14:43] VITALS: BP 106/62; BMI 38.6
== END 2024-04-10 17:02 ==
PROVIDERS: PCP Physician Assistant; Visit Provider Advanced Practice Midwife
DX: Z87.42 Personal history of other diseases of the female genital tract (principal); Z30.09 Encounter for other general counseling and advice on contraception; R10.2 Pelvic and perineal pain
CPT/HCPCS: 99213

== ENCOUNTER → 2024-04-10 14:23 | Outpatient (BNVA) | payer OTHER, SELFPAY | PROVIDERS: PCP Physician Assistant; Visit Provider Advanced Practice Midwife | DX: R10.2 Pelvic and perineal pain (principal); Z30.09 Encounter for other general counseling and advice on contraception; Z87.42 Personal history of other diseases of the female genital tract | CPT/HCPCS: 99212 ==

== ENCOUNTER 2024-04-30 13:28 | Outpatient (REF) | payer OTHER, SELFPAY ==
--- NOTE | ~2024-04-30 | US_ITS ---
EXAMINATION: US PELVIS TRANSABDOMINAL AND TRANSVAGINAL HISTORY: Z87.42 - Personal history of other diseases of the female genital tract COMPARISON: Comparison is made with the prior examination dated 12/09/2023. TECHNIQUE: Transabdominal and endovaginal real-time 2D beckham-scale ultrasound was performed. Color Doppler was also performed. FINDINGS: Uterus: The uterus is normal in size, measuring 8.0 x 3.5 x 4.6 cm. Myometrium has a normal echotexture. No fibroids are identified. Endometrium: The endometrial stripe measures 8 mm in thickness. Right ovary: The right ovary measures 4.3 x 2.4 x 3.0 cm. There is a 2.5 x 1.4 x 1.8 cm complex hypoechoic structure within the right ovary which demonstrates low-level internal echoes and may represent hemorrhagic cyst. Left ovary: The left ovary measures 3.3 x 1.9 x 3.1 cm. The left ovary is normal in size and echotexture. Color Doppler analysis of the bilateral ovarian arteries and veins are normal. Pelvic fluid: none. US/US pelvic and transvaginal IMPRESSION: Probable hemorrhagic right ovarian cyst measuring 2.5 x 1.4 x 1.8 cm. Follow-up is recommended in 6 weeks, at a different time in the patient's menstrual cycle, to document resolution. Electronically signed by: Jean Villavicencio MD 04/30/2024 03:12 PM [facility]
== END 2024-04-30 13:29 | disposition home or self-care (01) ==
LOC: HO.US 13:28
PROVIDERS: PCP Physician Assistant; Visit Provider Advanced Practice Midwife
DX: R10.2 Pelvic and perineal pain (principal); Z87.42 Personal history of other diseases of the female genital tract
CPT/HCPCS: 76830; 76856

== ENCOUNTER → 2024-04-30 13:30 | Outpatient (BNV) | payer OTHER, SELFPAY | PROVIDERS: PCP Physician Assistant; Visit Provider Radiology Diagnostic Radiology | DX: Z87.42 Personal history of other diseases of the female genital tract (principal); N83.201 Unspecified ovarian cyst, right side | CPT/HCPCS: 76830; 76856 ==

== ENCOUNTER 2024-05-16 10:28 | Emergency (ER) | payer OTHER, SELFPAY ==
[2024-05-16 10:44] VITALS: BP 115/77; PULSE 108; RESP 18; TEMP 36.8; O2SAT 98; BMI 38.7
--- NOTE | 2024-05-16 11:42 | ED_ITS ---
HPI - Nausea/Vomiting/Diarrhea General Chief complaint: Nausea/Vomiting/Diarrhea Stated complaint: vomiting Time Seen by Provider: 05/16/24 11:31 Source: patient, RN notes reviewed and old records reviewed Mode of arrival: ambulatory Limitations: no limitations History of Present Illness ED Provider: Swathi Reyna PA-C HPI Narrative: 18 yo female presenting to the ER for evaluation of N/V and epigastric abdominal pain that started last night around 8pm. Patient reports was cooking dinner last night and accidentally ate a piece of raw chicken. She took a small bite to see if it was cooked and realized that it was not fully cooked. She reports about an hour later she started having vomiting episodes. She had 1 episode of nonbloody diarrhea today. She reports epigastric burning abdominal pain. The pain does not radiate. No urinary symptoms. Denies chance of . No one else at home is having any similar symptoms. MD elicited complaint: nausea, vomiting and abdominal pain Onset (ago): hour(s) Description of vomiting: food contents and bilious Description of diarrhea: semi-solid Associated nausea: Yes Associated abdominal pain: Yes Location of pain: epigastric Pain consistency: constant Severity: moderate Quality: other (Burning) Exacerbating factors: none Relieving factors: none Associated symptoms: diaphoresis, fever/chills, loss of appetite and nausea/vomiting Related Data Previous Rx's ?Medication ?Instructions ?Recorded desogestrel-e.estradiol 0.15 1 tab PO DAILY #84 tabs 04/10/24 mg-0.02 mg(21)/e.estrad 0.01 mg(5) tablet ondansetron 4 mg disintegrating 4 mg PO Q8H PRN nausea and 05/16/24 tablet vomiting #7 tabs Allergies Allergy/AdvReac Type Severity Reaction Status Date / Time shrimp Allergy Anaphylaxis Verified 05/16/24 10:56 Review of Systems 2 Review of Systems: Yes all other systems are reviewed and are negative Gastrointestinal: Gastrointestinal: Reports nausea PMFSH Family History Family History Maternal Aunt No problems noted. 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 Oriented X3. No acute distress. Head: normocephalic, atraumatic. Eyes: Pupils equal, round and reactive to light. ENT: Pharynx normal. No tonsillar swelling or exudate. Moist mucous membranes Neck: Normal inspection. Neck supple. CVS: Normal heart rate and rhythm. Pulses normal. Respiratory: No respiratory distress. Breath sounds normal. Abdomen: Obese, soft with moderate tenderness in the epigastric region to deep palpation only. No right upper quadrant tenderness. Normal active +BS x4 Skin: Skin warm and dry. Normal skin color. Normal skin turgor. No rashes. Extremities: No lower extremity edema. No joint swelling. Neuro/psych: Oriented X 3. No motor deficit. No sensory deficit. CN II-XII intact. Normal speech and cognition. Medications Administered Discontinued Medications Generic Name Dose Route Start Last Admin Trade Name Ceci PRN Reason Stop Dose Admin Al Hydroxide/Mg Hydroxide 30 ml 05/16/24 12:03 05/16/24 12:30 Magnesium Hydrox/Alum Hydrox 30 Ml Oral.Susp PO 05/16/24 12:04 30 ml ONCE ONE Administration Belladonna Alkaloids/Phenobarbital 10 ml 05/16/24 12:03 05/16/24 12:30 Phenobarb/Hyoscy/Atropine/Scop 10 Ml Elixir PO 05/16/24 12:04 10 ml ONCE ONE Administration Sodium Chloride 1,000 mls @ 999 mls/hr 05/16/24 11:45 05/16/24 13:38 Ns IV 05/16/24 12:45 Infused .Q1H1M LENNY Infusion Lidocaine HCl 15 ml 05/16/24 12:03 05/16/24 12:30 Lidocaine Hcl Viscous 2 % 15 Ml Solution MUCOUS MEM 05/16/24 12:04 15 ml ONCE ONE Administration Ondansetron HCl 4 mg 05/16/24 11:31 05/16/24 11:46 Ondansetron Hcl 4 Mg/2 Ml Vial IVPUSH 05/16/24 11:32 4 mg ONCE ONE Administration Medical Decision Making Medical Decision Making [facility] Narrative: 18-year-old female presenting to the ER for evaluation of nausea, vomiting, epigastric abdominal pain that started last night after eating around piece of chicken. Vital signs so she is mildly tachycardic with heart rates in the low 100s. Blood pressure is stable and she has no fever. She had some mild epigastric tenderness on examination with no other significant abdominal exam findings. She has a mild leukocytosis on lab work. LFTs and lipase are normal. Beta quant hCG is negative. Patient treated with Zofran and IV fluids with improvement in her nausea and pain. She was then given a GI cocktail. Pain improved and she was given p.o. trial and did well. She is stable for discharge home with supportive care and antiemetics. Differential Diagnosis Differential Diagnoses: The differential diagnosis associated with the presentation includes Viral gastroenteritis, bacterial gastroenteritis, food poisoning, dehydration, MALATHI, , pancreatitis, acute cholecystitis Admission/Observation Consideration of admission/observation: Escalation of care including admission/observation considered Lab Data [facility] Lab Attestation statement: I reviewed the patient's lab results. 05/16/24 11:41 05/16/24 11:41 Labs: Lab Results 05/16/24 05/16/24 05/16/24 Range/Units 11:41 11:46 11:47 WBC 12.0 H (4.8-10.8) X10*3/uL RBC 4.77 (4.20-5.50) X10*6/uL Hgb 12.8 (12.0-16.0) g/dl Hct 38.2 (37.0-47.0) % MCV 80.1 (80.0-98.0) fL MCH 26.8 L (27.0-33.0) pg MCHC 33.5 (31.0-35.0) g/dl RDW 13.3 (11.0-16.0) % Plt Count 337 (160-400) X10*3/uL MPV 9.3 L (9.4-12.3) fL Immature Gran % (Auto) 0.4 (0.0-0.4) % Neut % (Auto) 89.5 H (45-73) % Lymph % (Auto) 4.0 L (20-40) % Butts % (Auto) 5.9 (2-11) % Eos % (Auto) 0.1 (0-4) % Baso % (Auto) 0.1 (0-2) % Lymph # (Auto) 0.5 L (1.2-4.9) X10*3/uL Butts # (Auto) 0.7 (0.1-1.2) X10*3/uL Eos # (Auto) 0.0 (0.0-0.4) X10*3/uL Baso # (Auto) 0.0 (0.0-0.2) X10*3/uL Abs Immat Gran (auto) 0.05 H (0.00-0.03) X10*3/uL Absolute Neuts (auto) 10.7 H (2.0-8.3) x10*3/uL Absolute Nucleated RBC 0.000 (0.0-0.012) X10*3/uL Nucleated RBC % (auto) 0.0 (0.0-0.2) /100WBC Sodium 139 (135-145) mmol/L Potassium 3.7 (3.3-5.1) mmol/L Chloride 107 (96-108) mmol/L Carbon Dioxide 25 (22-29) mmol/L Anion Gap 11 L (12-20) BUN 10 (9-16) mg/dL Creatinine 0.61 (0.5-1.4) mg/dL Estim Creat Clear Calc 164.9 Estimated GFR > 60 Random Glucose 104 (60-115) mg/dL Calcium 8.5 (8.4-10.2) mg/dL Magnesium 1.9 (1.6-2.6) mg/dL Total Bilirubin 0.5 (0.0-1.0) mg/dL Direct Bilirubin 0.2 (0.0-0.5) mg/dL AST 19 (5-31) U/L ALT 21 (0-31) U/L Alkaline Phosphatase 74 (39-117) U/L Total Protein 7.1 (6.5-8.0) g/dL Albumin 3.9 (3.5-5.0) g/dL Lipase 8 (8-78) U/L Beta HCG, Quant < 2 mIU/mL Urine Color Dark Yellow Urine Appearance Cloudy Urine pH 5.5 (5.0-9.0) Ur Specific Landing >= 1.030 H (1.005-1.025) Urine Protein Trace (Neg-Trace) mg/dL Urine Glucose (UA) Negative (Negative) mg/dL Urine Ketones 15 (Negative) mg/dL Urine Blood Negative (Negative) Urine Nitrite Negative (Negative) Ur Leukocyte Esterase Trace H (Negative) Urine RBC 0-2 (0-2) /HPF Urine WBC 0-5 (0-5) /HPF Ur Squamous Epith Cells 6-10 (0-2) /HPF Urine Bacteria 2+ (None Seen) Hyaline Casts 0-2 (0-2) /LPF Urine Opiates Screen Not Detected (Not Detect) Ur Buprenorphine Scrn Not Detected (Not Detect) ng/mL Ur Oxycodone Screen Not Detected (Not Detect) ng/mL Urine Methadone Screen Not Detected (Not Detect) ng/mL Urine Fentanyl Screen Not Detected (Not Detect) Ur Barbiturates Screen Not Detected (Not Detect) Ur Phencyclidine Scrn Not Detected (Not Detect) Ur Amphetamines Screen Not Detected (Not Detect) U Benzodiazepines Scrn Not Detected (Not Detect) Urine Cocaine Screen Not Detected (Not Detect) U Marijuana (THC) Screen POSITIVE H (Not Detect) Independent Historian Clinical information obtained from an independent historian. History obtained from or confirmed by: Spouse External Record Review External record reviewed: Outpatient record and Prior outpatient labs Tests considered The following testing was considered but not selected: Considered CT scan of her abdomen however she improved significantly and had reassuring workup Prescription Management I considered prescription management with: Pain Medication and Antibiotic Critical Care Time Critical Care Time Critical Care Time: No Discharge Plan Discharge Clinical Impression: Nausea & vomiting Qualifiers: Vomiting type: unspecified Qualified Code(s): R11.2 - Nausea with vomiting, unspecified Patient Disposition: Home, Self-Care Instructions: Acute Nausea and Vomiting (ED) Additional Instructions: You lab workup today was unremarkable. Your urine test was negative for infection and . You most likely have a viral GI bug also known as gastroenteritis. Treatment is supportive care, symptoms usually resolve on their own in 48-72 hours. Recommend rest and plenty of oral hydration. Stick to a bland diet like soup and toast while you are not feeling well. Take the prescribed medication as needed for nausea. Recommend over the counter Pepto Bismol or Imodium for upset stomach and diarrhea. Follow up with your doctor as needed. If you develop new or worsening symptoms call 911 or come back to the ER for further evaluation. Prescriptions: New ondansetron 4 mg tablet,disintegrating 4 mg PO Q8H PRN (Reason: nausea and vomiting) Qty: 7 0RF No Action desog-e.estradiol/e.estradiol 0.15-0.02 mgx21 /0.01 mg x 5 tablet 1 tab PO DAILY Qty: 84 3RF Print Language: Italian
[2024-05-16] MEDS: 0.9 % Sodium Chloride 1,000 ML 999 ML IV (11:46)
[2024-05-16] MEDS: ondansetron HCL 4 MG/2 ML VIAL IVPUSH (11:46)
[2024-05-16 11:47] LABS: MANUAL DIFF FLAG NO
[2024-05-16 11:49] LABS: Basophils Percent Auto 0.1 % (0-2); Eosinophils Percent Auto 0.1 % (0-4); Hematocrit 38.2 % (37.0-47.0); Hemoglobin 12.8 g/dl (12.0-16.0); Imm Gran Abs Auto 0.05 X10*3/uL (0.00-0.03); Imm Gran Pct Auto 0.4 % (0.0-0.4); Lymphocytes Absolute Auto 0.5 X10*3/uL (1.2-4.9); Mean Corpuscular HGB Conc 33.5 g/dl (31.0-35.0); Mean Corpuscular Hemoglobin 26.8 pg (27.0-33.0); Mean Corpuscular Volume 80.1 fL (80.0-98.0); Mean Platelet Volume 9.3 fL (9.4-12.3); Monocytes Absolute Auto 0.7 X10*3/uL (0.1-1.2); Monocytes Percent Auto 5.9 % (2-11); Neutrophils Absolute Auto 10.7 x10*3/uL (2.0-8.3); Neutrophils Percent Auto 89.5 % (45-73); Platelet Count 337 X10*3/uL (160-400); Red Blood Count 4.77 X10*6/uL (4.20-5.50); Red Cell Distribution Width 13.3 % (11.0-16.0)
[2024-05-16 11:55] LABS: Appearance Urine Cloudy; Color Urine Dark Yellow; Glucose Urine UA Negative (Negative); Leukocyte Esterase Urine Trace (Negative); Nitrite Urine Negative (Negative); PH 5.5 (5.0-9.0); Specific Gravity - Urine >= 1.030 (1.005-1.025); UMIC TRIGGER UACC YES; Urine Blood Negative (Negative); Urine Ketones 15 mg/dL (Negative); Urine Protein Trace mg/dL (Neg-Trace)
[2024-05-16 12:02] LABS: Amphetamine Screen Urine Not Detected (Not Detect); Barbiturates, Urine Not Detected (Not Detect); Benzodiazepines Screen Urine Not Detected (Not Detect); Buprenorphine Scr Not Detected (Not Detect); Cannabinoid Screen Urine POSITIVE (Not Detect); Cocaine Screen Urine Not Detected (Not Detect); Fentanyl, urine Not Detected (Not Detect); Methadone Screen, Urine Not Detected (Not Detect); Opiate Screen Urine Not Detected (Not Detect); Oxycodone Screen Urine Not Detected (Not Detect); Phencyclidine Screen Urine Not Detected (Not Detect)
[2024-05-16 12:03] LABS: Bacteria Urine 2+ (None Seen); Hyaline Casts Urine 0-2 /LPF (0-2); RBC Urine 0-2 /HPF (0-2); WBC Urine 0-5 /HPF (0-5)
[2024-05-16 12:08] LABS: Alanine Aminotransferase 21 U/L (0-31); Albumin Level 3.9 g/dL (3.5-5.0); Alkaline Phosphatase 74 U/L (39-117); Anion Gap 11 (12-20); Aspartate Amino Transferase 19 U/L (5-31); Bilirubin Direct 0.2 mg/dL (0.0-0.5); Bilirubin Total 0.5 mg/dL (0.0-1.0); Blood Urea Nitrogen 10 mg/dL (9-16); Calcium 8.5 mg/dL (8.4-10.2); Carbon Dioxide 25 mmol/L (22-29); Chloride 107 mmol/L (96-108); Creatinine Clr Calc Pharmacy 164.9; Estimated Glomerular Filt Rate > 60; Glucose Random 104 mg/dL (60-115); Lipase 8 U/L (8-78); Magnesium 1.9 mg/dL (1.6-2.6); Potassium 3.7 mmol/L (3.3-5.1); Sodium 139 mmol/L (135-145); Total Protein 7.1 g/dL (6.5-8.0)
[2024-05-16 12:09] LABS: HCG Quantitative < 2 mIU/mL
[2024-05-16] MEDS: Lidocaine HCl Viscous 2 % 15 ML SOLUTION MUCOUS MEM (12:30)
[2024-05-16] MEDS: Magnesium Hydrox/Alum Hydrox 30 ML ORAL.SUSP PO (12:30)
[2024-05-16] MEDS: PHENobarb/Hyoscy/Atropine/Scop 10 ML ELIXIR PO (12:30)
[2024-05-16 14:35] VITALS: BP 105/66; PULSE 84; RESP 16; TEMP 36.9; O2SAT 99
[2024-05-16 14:39] VITALS: BP 105/66; PULSE 84; RESP 16; TEMP 36.9; O2SAT 99
== END 2024-05-16 14:39 | disposition home or self-care (01) ==
PROVIDERS: Physician Assistant; Emergency Provider Emergency Medicine; PCP Physician Assistant
DX: R11.2 Nausea with vomiting, unspecified (principal); F12.90 Cannabis use, unspecified, uncomplicated
CPT/HCPCS: 36415; 80048; 80076; 80307; 81001; 83690; 83735; 84702; 85025; 96361; 96374; 99284; 99285; J2405